=== PATIENT | female | born 1935 | race American Indian/Alaskan Native ===

== ENCOUNTER 2017-08-28 16:45 | Emergency (ER) | payer MEDICARE, OTHER ==
[~2017-08-28] VITALS: Ht 157.5 cm; Wt 53.5 kg
[~2017-08-28 16:45] MED LIST: ACYCLOVIR800 MG PO; AZITHROMYCIN250 MG PO; CALCIUM 600 +1 EAC3 PO; CEPHALEXIN500 MG PO; CLARITIN5 MG PO; COLACE100 MG PO; HYDROXYZINE HCL25 MG PO; LORATADINE10 MG PO; MAGNESIUM OXID400 MG PO; NORCO 5-325 TA1 EACH; NORCO 5-325 TA1 EACH PO; PROVENTIL HFA6.7 GM INH; TERBINAFINE15 GM TOP; ZINC OXIDE30 GM TOP
== END 2017-08-28 19:08 | disposition home or self-care (01) ==
LOC: ED 16:45
DX: M54.5 Low back pain (principal); G89.29 Other chronic pain; R62.7 Adult failure to thrive; Z87.891 Personal history of nicotine dependence
CPT/HCPCS: 71010; 74000; 80053; 81001; 85025; 99283

== ENCOUNTER 2017-12-20 19:22 | Emergency (ER) | payer MEDICARE, OTHER ==
[~2017-12-20] VITALS: Ht 160 cm; Wt 53.5 kg
--- OUTSIDE RECORDS SUMMARY | 2017-12-20 20:13 | XMS | Clinical Summary ---
Demographics + + + | Address | [address] | | | [place] [address] | + + + | Home Phone | | + + + | Preferred Language | Unknown | + + + | Marital Status | | + + + | Orthodoxy Affiliation | Unknown | + + + | Race | or | + + + | Ethnic Group | Not or | + + + Author + + + | Author | [facility] | + + + | Organization | [facility] | + + + | Address | Unknown | + + + | Phone | Unavailable | + + + Support +------+ +---------+ + | Name | Relationship | Address | Phone | +------+ +---------+ + ECON | Unknown | Unavailable | +------+ +---------+ + Care Team Providers + +------+ + | Care Manager Gas Name | Role | Phone | + +------+ + PP | Unavailable | + +------+ + Source Comments JIMMY is fully live on both [facility] and [facility] InPatient.[facility] Allergies Not on File Current Medications Not on file Active Problems Not on file Social History + +-------+ +--------+------+ | Tobacco Use | Types | Packs/Day | Years | Date | | | | | Used | | + +-------+ +--------+------+ | Never Assessed | | | | | + +-------+ +--------+------+ + + + | Sex Assigned at | Date Recorded | | | | + + + | Not on file | | + + + Plan of Treatment + + + + + | Health Maintenance | Due Date | Last Done | Comments | + + + + + | INFLUENZA VACCINE | | | | | (FLU SHOT) | 7 | | | + + + + + Results Not on filefrom Last 3 Months"
--- OUTSIDE RECORDS SUMMARY | 2017-12-20 20:13 | XMS | Clinical Summary ---
Demographics + + + | Address | [address] | | | [place] [address] | + + + | Home Phone | | + + + | Preferred Language | Unknown | + + + | Marital Status | | + + + | Voodoo Affiliation | Unknown | + + + [...] Team Providers + +------+ + | Care Senior Business Consultant Name | Role | Phone | + +------+ + PP | Unavailable | + +------+ + Source Comments JIMMY is fully live on both [facility] and [facility] Allergies Not on File Current Medications [...]
== END 2017-12-20 21:22 | disposition home or self-care (01) ==
LOC: ED 19:22
DX: R10.9 Unspecified abdominal pain (principal); Z87.891 Personal history of nicotine dependence
CPT/HCPCS: 74176; 80053; 81001; 85025; 96374; 96375; 99284; J1885; J2405

== ENCOUNTER 2018-04-29 13:38 | Inpatient (IN) | payer MEDICARE, OTHER ==
[~2018-04-29] VITALS: Ht 160 cm; Wt 57.6 kg
--- NOTE | 2018-04-29 18:28 | NUR ---
PT RECEIVED FROM ED. PT TRANSFERED TO BED. PT PAINFUL TO MOVE AND TOUCH BILATERAL LOWER LEGS. PT ON ROOM AIR, LUNG SOUNDS CLEAR WITH FINE CRACKLES TO LOWER LOBES, TACHYPNIC. PT BOWEL TONES ACTIVE, DENIES NAUSEA. PT CONFUSED, POOR HISTORIAN, DISORIENTED TO PLACE, DATE AND EVENT. PT WITH SCATTERED SORES TO BACK, BUTTOCK, ARMS AND LEGS. REDNESS AND WARMTH TO LEFT BUTTOCK, LEFT HIP, LEFT CALF, RIGHT KNEE. PT ON TELEMETYR #7, SR, HR IN 80'S. PT ASSISTED WITH ORDERING DINNER. BED ALARM IN PLACE.
--- NOTE | 2018-04-29 18:40 | NUR ---
PT RECEIVED THIS EVENING FROM ED. PT ON TELE #7, IRREGULAR. PT CONFUSED, DISORIENTED TO ALL BUT SELF, BED ALARM IN PLACE. PT ON REGULAR DIET, POOR DENTITION, SOFT FOODS ENCOURAGED. PT WITH REDNESS AND PAIN TO BLE AND LEFT BUTTOCK, R/O DVT SCHEDULED FOR THIS EVENING. NS AT 100 ML/HR, IV LEVAQUIN. PT HAS NOT VOIDED SINCE ARRIVING TO FLOOR.
--- NOTE | 2018-04-29 21:02 | NUR ---
PT ASSESSMENT COMPLETE. PT REMOVING TELE, STATES "I DON'T WANT THAT ON". TELE STICKERS AND LEADS REPLACED. HR 80'S TO 90'S. LUNG SOUNDS COARSE TO BILATERAL LOWER LOBES. PT DOES NOT FOLLOW INSTRUCTIONS TO COUGH. PT REPORTS BM YESTERDAY. DENIES TENDERNESS TO ABD PALPATION. PT'S L BUTTOCK IS REDENNED, TENDER TO TOUCH. BLE'S TENDER TO TOUCH. AREA OF REDNESS AND WARMTH TO R KNEE AND L CALF OUTLINED. 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 STATES "LEAVE ME ALONE, I WANT TO SLEEP". BED ALARM IN PLACE DUE TO ALTERED MENTAL STATUS. PT'S ROOM IN VIEW OF NURSES STATION WITH CURTAIN OPEN.
--- NOTE | 2018-04-29 21:47 | NUR ---
PT REMOVED HER TELE STICKERS AGAIN, HAVE BEEN IN PT ROOM 5 TIMES SINCE 1930 TO REPLACE THE TEL STICKERS. PT COMPLAINS SHE WANTS TO SLEEP EVERYTIME THIS NURSE REPLACES THE STICKERS. ENCOURAGED PT TO KEEP THEM ON.
--- NOTE | 2018-04-30 00:23 | NUR ---
PT ASSESSMENT COMPLETE. PT DENIES PAIN. PT REMAINS DISORIENTED. PT REMOVED DRESSING TO IV SITE. PT CONTINUES TO BE AGITATED, STATING "LEAVE ME ALONE". IV DRESSING REPLACED. REDNESS TO L BUTTOCK AND BILATERAL LOWER EXTREMITIES CONTINUES. TENDERNESS TO BUTTOCKS AND BLE'S CONTINUES. REDNESS TO BLE'S REMAINS WITHIN OUTLINED AREAS. PT DENIES NEEDS. BED ALARM REMAINS ACTIVATED. CALL LIGHT WITHIN REACH.
--- NOTE | 2018-04-30 01:30 | NUR ---
PT FOUND LYING IN BED WITH IV REMOVED. IV CATHETER WITH TIP INTACT. GAUZE AND COBAN APPLIED TO SITE.
--- NOTE | 2018-04-30 02:38 | NUR ---
NEW IV SITE PLACED. PT TOLERATED WELL. COBAN AND GAUZE DRESSING APPLIED OVER IV SITE. MAINTENANCE FLUIDS RESTARTED. PT DENIES OTHER NEEDS. CALL LIGHT WITHIN REACH. BED ALARM ACTIVATED. ROOM WITHIN VIEW OF NURSES STATION WITH CURTAIN OPEN.
--- NOTE | 2018-04-30 04:15 | NUR ---
MD CALLED, NOTIFIED RE: URINE OUTPUT. ORDER RECEIVED TO INSERT CATHETER.
--- NOTE | 2018-04-30 05:17 | NUR ---
CATHETER INSERTED. PT VERY AGITATED DURING PROCEDURE, ATTEMPTING TO HIT STAFF AND YELLING AT STAFF TO STOP. IMMEDIATE RETURN OF 450ML OF LIT COLORED URINE. CATH SECURE IN PLACE ON R LEG, CATHETER TUBING PLACED OUT OF PT'S REACH.
--- NOTE | 2018-04-30 07:07 | EKG ---
[facility] [address] [place] [address] Signed Normal sinus rhythm Left axis deviation Abnormal ECG When compared with ECG of 29-APR-2018 14:12, (Unconfirmed) Sinus rhythm has replaced Atrial fibrillation Vent. rate has decreased BY 99 BPM Criteria for Septal infarct are no longer present Confirmed by PARVIZ MUNROE MD ([id number] on 04/30/2018 7:07:13 AM Electronically Signed By: PARVIZ MUNROE MD 04/30/18 0707 PATIENT NAME: ODALYS NAVARRO ZEYNEP Electrocardiogram DATE OF : 35 PHYSICIAN: PARVIZ MUNROE MD REPORT #: [id number] REPORT IS CONFIDENTIAL AND NOT TO BE RELEASED WITHOUT AUTHORIZATION
--- NOTE | 2018-04-30 07:07 | EKG ---
[facility] [address] [facility] [place], [place] [address] Signed Atrial fibrillation with rapid ventricular response Left axis deviation Minimal voltage criteria for LVH, may be normal variant Septal infarct , age undetermined Abnormal ECG No previous ECGs available Confirmed by PARVIZ MUNROE MD ([id number]) on 04/30/2018 7:06:58 AM Electronically Signed By: PARVIZ MUNROE MD 04/30/18 0707 PATIENT NAME: ODALYS NAVARRO ZEYNEP Electrocardiogram DATE OF : 35 PHYSICIAN: PARVIZ MUNROE MD REPORT #: [id number] REPORT IS CONFIDENTIAL AND NOT TO BE RELEASED WITHOUT AUTHORIZATION
--- NOTE | 2018-04-30 08:09 | NUR ---
SET PT UP FOR BRK AND ORDERED PT BRK. PT KEEPS STATING SHE WANTS TO GO HOME. SHE WANTS HER CLOTHES SO SHE CAN GO HOME.
--- NOTE | 2018-04-30 08:15 | NUR ---
PT AWAKE IN BED, ORIENTED TO SELF ONLY. BREAKFAST AT BEDSIDE. PT REFUSING TO EAT, GAVE PT ENSURE TO SIP ON. REPORTING LEFT HIP PAIN 5/10, AND REDDENED AREAS VERY SENSITIVE AND PAINFUL TO TOUCH, SLIGHTLY WARM REDNESS WITHIN BORDERS OF MARKINGS. IV INFUSING WNL, TORRES DRAINING WELL, URINE DARK YELLOW. BED ALARM ON. CALL LIGHT WITHIN REACH.
--- NOTE | 2018-04-30 11:05 | NUR ---
PT RESTING IN BED WITH EYES CLOSED, RESP EVEN AND UNLABORED, BED ALARM ON. WHEN AWAKE PT PICKS AT BLANKETS, OCC PULLS ON TORRES, OTHERWISE APPROPRIATE.
--- NOTE | 2018-04-30 11:31 | NUR ---
SPOKE WITH DOYLE MORENO [facility] NURSE FOR [facility] [address]. SHE STATES THEY HAVE FOLLOWED PATIENT IN THE PAST BUT HAVE NOT RECENTLY BEEN TO HER HOME. PATIENT RARELY COMES TO CLINIC. THEY CAN FOLLOW PATIENT AT DISCHARGE IF NEEDED.
--- NOTE | 2018-04-30 11:45 | NUR ---
vitals and i and o done. gave pt a wipe down.
--- NOTE | 2018-04-30 12:05 | NUR ---
PT SITTING IN BED WITH LUNCH TRAY AT BEDSIDE, STATES SHE IS NOT HUNGRY AND WONT TAKE ANY BITES OF FOOD EVEN WITH ASSISTANCE. ENSURE GIVEN. PT DENIES NEEDS OR CONCERNS AT THIS TIME. CALL LIGHT WITHIN REACH, BED ALARM ON.
--- NOTE | 2018-04-30 13:43 | NUR ---
PT AWAKE TO THE SOUND OF MY VOICE. PT LAYING ON R SIDE, WITH ONLY A GOWN FOR COVERING. I ASKED IF IF SHE WAS COLD, SHE SAID NO, BUT THAT SHE WAS WAITING FOR SOMEONE TO BRING HER HER "BAG". SHE SHOOK MY HAND AND SMILED. PT SAID SHE WAS IN NO PAIN AT THE MOMENT. WILL FOLLOW NEEDED
--- NOTE | 2018-04-30 13:50 | NUR ---
PT ASSISTED TO RECLINER WITH EITAN Peck AND TONE [place]. PT 2PA WITH WALKER, HAD TROUBLE FOLLOWING COMMANDS. SITTING UP IN RECLINER WATCHING TV, CHAIR ALARM IN PLACE.
--- NOTE | 2018-04-30 16:15 | NUR ---
PT RESTING IN RECLINER WITH EYES CLOSED, RESP EVEN AND UNLABORED. CHAIR ALARM ON.
--- NOTE | 2018-04-30 16:26 | NUR ---
THIS FURNITURE UPHOLSTERER HEPLED pt TO THE CHAIR WITH PT. HELPED ORDER DINNER AND BRK. pt HAS CALL LIGHT IN REACH.
--- NOTE | 2018-04-30 18:20 | NUR ---
PT 2PA BACK TO BED. ATE SMALL AMOUNT OF DINNER INDEPENDENTLY. RESTING IN BED, DENIES NEEDS OR CONCERNS. REMAINS ORIENTED TO SELF ONLY. CALL LIGHT WITHIN REACH. BED ALARM ON.
--- NOTE | 2018-04-30 21:30 | NUR ---
PATIENT IS RESTING COMFORTABLY IN BED, BREATHING IS EVEN AND UNLABORED. DENIES NEEDS AT THIS TIME. ASSESSMENT DONE. CALL LIGHT WITHIN REACH, BED ALARM ON.
--- NOTE | 2018-04-30 22:12 | NUR ---
UPDATED DR. BRAUN REGARDING PATIENT'S LOW URINE OUTPUT. NEW ORDERS RECEIVED PER EMAR. PATIENT TO RECEIVE 1L LR BOLUS OVER 3 HOURS.
--- NOTE | 2018-04-30 22:57 | NUR ---
PATIENT RESTING IN BED, BREATHING IS EVEN AND UNLABORED. IV REMAINS PATENT, FIDGITING WITH BLANKETS. STATES "I NEED TO FIND A BATHROOM." EDUCATED PATIENT ABOUT TORRES CATHETER. CATHETER IS PATENT AND DRAINING. CALL LIGHT WITHIN REACH, BED ALARM ON.
--- NOTE | 2018-05-01 00:45 | NUR ---
PATIENT RESTING IN BED, BREATHING IS EVEN AND UNLABORED. CONTINUES TO FIDGIT WITH BLANKETS AND IV TUBING. IV REMAINS INTACT. PATIENT STATES "I NEED A KNIFE FOR THIS TUBING." EDUCATED PATIENT ABOUT NEED FOR IV. PATIENT DENIES NEEDS AT THIS TIME. CALL LIGHT WITHIN REACH, BED ALARM ON.
--- NOTE | 2018-05-01 06:15 | NUR ---
PATIENT TURNED AND ATTENDS CHANGED, PATIENT APPEARS TO BE TACHYPNEIC, O2 SATURATION 96% ON ROOM AIR. PATIENT DENIES FEELING SOB, DOES NOT APPEAR IN DISTRESS. RT CALLED FOR PATIENT EVALUATION, PATIENT PLACED ON 2L O2 VIA NC. ONCE PATIENT AT REST, RR NOW 25. PATIENT STATES SHE IS COMFORTABLE. CALL LIGHT WITHIN REACH, BED ALARM ON.
--- NOTE | 2018-05-01 07:20 | NUR ---
BEDSIDE HANDOFF REPORT RECIVED FROM CIGAR WRAPPER RN. PT RESTING IN BED. PT DENIES NEEDS AT THIS TIME NS +40 MEQ POTASSIUM INFUSING AT 75 ML/HR. BED ALARM IN PLACE, TORRES CATH DRAINING FREELY.
--- NOTE | 2018-05-01 07:30 | NUR ---
UPDATED DR. BRAUN REGARDING PATIENT CONDITION. SINGLE VIEW CHEST XRAY ORDERED.
--- NOTE | 2018-05-01 09:15 | NUR ---
PT RESTIGNI N BED. NURSE AIDE AT BEDSIDE PROVIDING CARE. PT ON ROOM AIR, LUNG SOUNDS COARSE WITH EXPIRATORY WHEEZE TO LEFT LOWER LOBE, TACHYPNIC. PT WITH POOR APPETITE, BOWEL TONES ACTIVE. PT WITH TORRES IN PLACE, DRAINING YELLOW CONCENTRATED URINE. IV FLUIDS INCREASED TO 100 ML/HR PER ORDER. PT UNCOOPERATIVE WITH CARES, PAINFUL TO TOUCH BILATERAL LOWER LEGS OR TO TURN.
--- NOTE | 2018-05-01 09:32 | NUR ---
ORAL CARE SKIN CARE DONE ON PATIENT. PATIENT REFUSED VANGIE CARE. WILL TRY AGAIN. CHAPSTICK APPLIED TO LIPS. ATTENDS CLEAN AND DRY. CLEAN GOWN ON. BED ALARM ON.
--- NOTE | 2018-05-01 09:40 | NUR ---
PLAN TO TRANSFER PT TO CCU, CCU NURSE ODALYS TO BEDSIDE FRO REPORT. COURTROOM CLERK TO BEDSIDE TO TRANSPORT PT FOR ABD CT SCAN. IV ROCEPHIN GIVEN, IV VANCO INFUSING. PT ON ROOM AIR. REPORT GIVEN.
[2018-05-01] MEDS ORDERED: VITAMIN C500 M1 PO (10:09)
[2018-05-01] MEDS ORDERED: LASIX20 MG PO (10:10)
[2018-05-01] MEDS ORDERED: FERROUS GLUCON324 M1 PO (10:10)
[2018-05-01] MEDS ORDERED: IBU400 MG PO (10:11)
[2018-05-01] MEDS ORDERED: POTASSIUM CHLO10 ME1 PO (10:13)
[2018-05-01] MEDS ORDERED: TRIAMCINOLONE A15 G1 TOP (10:15)
--- NOTE | 2018-05-01 10:16 | NUR ---
BPT ARRIVED TO ROOM 128 VIA BED FROM MED/SURG AFTER CT OF ABD/PELVIS. VITAL SIGNS TAKEN, PT ON MONITOR WITH HEART RATE 110, BP 120/87, ORAL TEMP 98.6. PT CONFUSED BUT COOPERATIVE AT THIS TIME. TORRES BAG CHANGED TO UROMETER TO CHECK HOURLY URINE OUTPUT. ASSESSMENT COMPLETED, SKIN WITH RED AREAS. RED AREA ON RIGHT KNEE MARKED. VANCOMYCIN RUNNING AT THIS TIME.
--- NOTE | 2018-05-01 10:16 | NUR ---
MED REC COMPLETE
--- NOTE | 2018-05-01 12:44 | NUR ---
URINE OUTPUT [address] BRAUN HERE AND NOTIFIED. LR 500 ML BOLUS STARTED.
--- NOTE | 2018-05-01 13:08 | NUR ---
ASSESSMENT AND VITAL SIGNS COMPLETED. DRAW SHEET AND ATTENDS CHANGED. RED AREA ON LEFT HIP/BUTTOCK OUTLINED WITH MARKER. PT RESTING WITH HOB ELEVATED ON RIGHT SIDE. HEART RATE REMAINS TACHY AT 113 BPM AND PT TACHYPNIC WITH RESP 33.
--- NOTE | 2018-05-01 14:51 | NUR ---
DR. BRAUN NOTIFIED OF SVT HR 162 BPM. ORDERS RECEIVED FOR MAG RIDER 2GM IV AND ALSO FOR 2D ECHO.
--- NOTE | 2018-05-01 15:03 | NUR ---
PT RESTING IN BED, SVT NOTED UP TO 180 BPM ON MONITOR. URINE OUTPUT 16 MLS THIS HOUR. MAG RIDER RUNNING.
--- NOTE | 2018-05-01 15:23 | NUR ---
ULTRA SOUND TECH HERE TO START 2D ECHO.
--- NOTE | 2018-05-01 16:06 | NUR ---
ASSESSMENT COMPLETED. PT RESTING ON LEFT SIDE. 2D ECHO COMPLETED. URINE OUTPUT 25 MLS THIS HOUR.
--- NOTE | 2018-05-01 16:28 | NUR ---
DR. BRAUN NOTIFIED OF YELLOW PILLS FOUND ON THE FLOOR OF PT'S ROOM. POSSIBLE POTASSIUM PILLS FROM THIS MORNING. LAB HERE FOR LAB DRAW PER DR. SIMS.
--- NOTE | 2018-05-01 17:59 | NUR ---
IVF CHANGED PER ORDER. 22 GAUGE IV INSERTED IN LEFT HAND. URINE OUTPUT 15 MLS FOR THIS HOUR.
--- NOTE | 2018-05-01 20:30 | NUR ---
UPDATED DR. BRAUN REGARDING PATIENT'S CURRENT CONDITION. DR. BRAUN STATES THAT HE WILL COME TO FLOOR AND ASSESS PATIENT.
--- NOTE | 2018-05-01 20:42 | NUR ---
DR. BRAUN TO PATIENT'S ROOM TO SPEAK WITH FAMILY AND ASSESS PATIENT.
--- NOTE | 2018-05-01 22:00 | NUR ---
UPDATED DR. BRAUN REGADING PATIENT'S OLIGUIA. NO NEW ORDERS AT THIS TIME.
--- NOTE | 2018-05-01 23:05 | NUR ---
UPDATED DR. BRAUN REGARDING PATIENT'S OLIGUIA. NO NEW ORDERS AT THIS TIME.
--- NOTE | 2018-05-01 23:22 | NUR ---
PATIENT RESTING COMFORTABLY IN BED, RR IS 25, HEART RATE 74. APPEARS TO BE RESTFUL, FLACC SCORE OF 0.
--- NOTE | 2018-05-02 00:04 | NUR ---
PATIENT RESTING COMFORTABLY IN BED. RR IS 28, HEART RATE 70. FLACC SCORE OF 0.
--- NOTE | 2018-05-02 01:10 | NUR ---
PATIENT RESTING COMFORTABLY IN BED, RR IS 27, HEART RATE 65. FLACC SCORE OF 0.
--- NOTE | 2018-05-02 02:09 | NUR ---
PT SLEEPING. RESP REG.
--- NOTE | 2018-05-02 04:26 | NUR ---
CONTINUES TO SLEEP WELL. BRIEF ASSESSMENT DONE AND PT DID STIR BUT NOT AWAKENED. GIVEN ONLY 2.5MG LOPRESSOR HR DECREASED TO 59 AND BP 103/44. RESP LESS LABORED SINCE HAS BEEN ASLEEP.
--- NOTE | 2018-05-02 08:16 | NUR ---
PT AWAKE AND ALERT, DRINKING CHOCOLATE ENSURE WHEN OFFERED. WILL TRY TO FEED PT A REG DIET. ASSESSMENT COMPLETED, NO C/O AT THIS TIME.
--- NOTE | 2018-05-02 09:09 | NUR ---
DR. BRAUN IN TO ASSESS PT. LAB ALSO HERE FOR A.M. LAB DRAW. A.M. MEDS GIVEN WITHOUT PROBLEMS.
--- NOTE | 2018-05-02 12:20 | NUR ---
PT SLEEPY AND REFUSED ORAL TEMP AND ORAL MEDS, ALSO REFUSED LUNCH. AXILLARY TEMP 99.4. LAB CALLED WITH CRITICAL VALUE - WBC 38.6. DR. BRAUN NOTIFIED. DR. BRAUN HERE AND UPDATE GIVEN, NEW ORDERS RECEIVED. ASSESSMENT COMPLETED, URINE OUTPUT REMAINS APPROX 20 MLS/HR. PT REMAINS SLEEPY AND RESTING WITH HOB SLIGHTLY ELEVATED. SATS 95% ON RA, HR 80, RESP 25, BP 110/59 (71).
--- NOTE | 2018-05-02 15:26 | NUR ---
PT AWAKE, SPONGE BATH GIVEN AND CATH CARE COMPLETED. LOTION APPLIED TO DRY SKIN. ALLEVYN DRESSING ON RIGHT BUTTOCK NOT IN PLACE, DRESSING CHANGED. P.T. HERE AND PT ASSISTED TO SITTING POSITION. PT WAS ABLE TO STAND AND SIT X5. LINEN CHANGED AND PT RETURNED TO BED WITH 2 PERSON ASSIST. PT RESTING WITH EYES CLOSED, HOB ELEVATED 20 DEGREES.
--- NOTE | 2018-05-02 17:07 | NUR ---
PT CRYING, DENIES PAIN BUT STATES "I'M AFRAID TO GO ANY WHERE". PT REASSURED SHE IS SAFE HERE. ASSESSMENT COMPLETED. PT HAS GOOD PRODUCTIVE COUGH PRODUCING THICK WHITE PHLEGM. PT WITH HOB ELEVATED 40 DEGREES.
--- NOTE | 2018-05-02 17:23 | NUR ---
DR. BRAUN NOTIFIED OF INCREASED COUGH AND PRODUCTION OF THICK PHLEGM. ORDERS RECEIVED. IVF DECREASED TO 60 MLS/HR.
--- NOTE | 2018-05-02 17:47 | NUR ---
PT MEDICATED WITH TESSALON MARTY AND ROBITUSSIN DM 5MLS FOR COUGH.
--- NOTE | 2018-05-02 22:29 | NUR ---
PT UP TO COMMODE AT THIS TIME, TWO ASSIST WITH MINIMAL EFFORT BY PT. PT ABLE TO STAND AND PIVOT. SMALL LOOSE BM. SAMPLE COLLECTED TO SEND TO LAB.
--- NOTE | 2018-05-03 02:11 | NUR ---
PT RESTING AT THIS TIME, REQUESTING TO GO HOME TODAY. PT REORIENTED TO TIME AND PT IN AGREEMENT TO CONTINUE RESTING.
--- NOTE | 2018-05-03 04:19 | NUR ---
PT REQUESTS AGAIN TO RETURN HOME, REORIENTED TO TIME AND REPOSITIONED. PT BECOMING MORE VERBAL AND RESPONSIVE WITH APPROPRIATE QUESTIONS. PT DOES NOT ANSWER ALL QUESTIONS AT THIS TIME.
--- NOTE | 2018-05-03 08:12 | NUR ---
ASSESSMENT DONE. WILL SAY VERY FEW WORDS. REFUSING BREAKFAST. KEEPING EYUES SHUT. DENIES PAIN. RESP RATE 30. IVF PATENT AT 60 ML/HR. TORRES CATH IS PATENT WITH CLEAR YELLOW URINE.
--- NOTE | 2018-05-03 11:10 | NUR ---
URINE OUT OVER LAST HOUR EQUAL 10 ML, DR. BRAUN AWARE, NO FUTHER ORDERS AT THIS TIME. FAMILY MEMBERS ARE IN ROOM.
--- NOTE | 2018-05-03 12:11 | NUR ---
REFUSING LUNCH AND REFUSING ASSESSMENT AND VITAL SIGNS. VERY RESISTANT TO ANY TREATMENT OR CARES.
--- NOTE | 2018-05-03 12:49 | NUR ---
PT HAS BEEN IN BED, JOHNNY BARBER ADDED, RATHER UNRESPONSIVE. SHE HAS A G.SON FROM [place] HERE TO VISIT. I ENCOURAGED HER TO VISIT WITH HIM-HE HAS TRAVELLED A LONG WAS TO BE WITH HER. I WISHED THEM WELL AND THANKED HIM FOR MAKING THE TRIP. I LEFT I NOTICED PT WAS ACTUALLY VISITING WITH HIM. GOD BLESS THEM
--- NOTE | 2018-05-03 12:50 | NUR ---
UP TO COMMODE TO HAVE SMALL BM. THEN TO CHAIR. MORE AWAKE AND COOPERATIVE A THIS TIME. CONTINUE TO REFUSE FLUIDS OF LUNCH. ENC TO DEEP BREATH.
--- NOTE | 2018-05-03 13:15 | NUR ---
REFUSING PO MEDICATION. (POTASSIUM AND KPHOS). DR. BRAUN AWARE. THESE DC'D. WILL HANG IV KPHOS.
--- NOTE | 2018-05-03 14:00 | NUR ---
REMAINS IN CHAIR. KPHOS HUNG PER ORDERS. REFUSING ANYTHING PO
--- NOTE | 2018-05-03 16:00 | NUR ---
BACK TO BED AFTER ASSESSMENT. FAMILY MEMBERS REMAIN IN ROOM
--- NOTE | 2018-05-03 18:15 | NUR ---
ATTEMPTING TO GET OOB. TRANSFERRED TO CHAIR. CONTINUE TO REFUSE DINNER. WILL NOT TAKE ENSURE OR PO FLUIDS. HAVE ATTEMPTED SEVERAL TIMES TO GET PATIENT TO DRINK /EAT SOMETHING.
--- NOTE | 2018-05-03 18:25 | NUR ---
ATTEMPTING TO GET OUT OF CHAIR. PATIENT STATES SHE WANTS TO GO HOME. TOLD PT SHE COULD GO BACK TO BED OR STAY IN CHAIR. IS VERY DIFFICULT TO REASON WITH PATIENT. ATTEMPTED TO REORIENT. WISHES TO REMAIN IN CHAIR. IS VERY FRUSTRATED AT TIMES.
--- NOTE | 2018-05-04 06:10 | NUR ---
PT UP TO CHAIR AT THIS TIME; PT STATES SHE FEELS MUCH BETTER, WILLING TO TAKE SMALL AMOUNT OF PO CLEAR ENSURE; PT MORE ORIENTED AT THIS TIME
--- NOTE | 2018-05-04 07:28 | NUR ---
BEDSIDE REPORT RECIEVED. IS SITTING IN CHAIR, RESTFUL.
--- NOTE | 2018-05-04 08:30 | NUR ---
REFUSING BREAKFAST. REMAINS IN CHAIR. DENIES PAIN. RIGHT KNEE AND LEFT LOWER LEG WELL LEFT BUTTOCKS REMAINS RED.
--- NOTE | 2018-05-04 09:00 | NUR ---
TO SHOWER VIA SHOWER CHAIR.
--- NOTE | 2018-05-04 09:20 | NUR ---
TOLERATED SHOWER WELL. BACK TO BED W/O INCIDENT. DRESSING TO LEFT LOWER BUTTOCKS CHANGED.
--- NOTE | 2018-05-04 09:50 | NUR ---
DR. BRAUN HERE TO SEE PATIENT, PATIENT WILL BE TRANSFERRED TO MEDICAL FLOOR TODAY.
--- NOTE | 2018-05-04 10:22 | NUR ---
IVF CHANGED TO D5 LR WITH 40 KCL AT 60 ML/HR. TOOK PO LOPRESSOR W/O PROBLEMS. CONTINUE TO REFUSE TO EAT. TELEMETRY PJ'Les.
--- NOTE | 2018-05-04 10:45 | NUR ---
TO MEDICAL FLOOR VIA BED. REPORT GIVEN.
--- NOTE | 2018-05-04 11:48 | NUR ---
PT ARRIVED AT 1050. IV SITE ON HER LEFT AC HAS INFILTRATED. PT HOWEVER AT THIS TIME REFUSES A NEW IV SITE. PT AT THIS TIME JUST WANTS TO BE LEFT ALONE.
--- NOTE | 2018-05-04 12:39 | NUR ---
PT MOVED TO M/S FROM CCU. I ASKED PT IF SHE WAS COLD, SHE SAID NO, SAME FOR ANY PAIN SHE MIGHT BE EXPERIENCING. SHE DID SAY SHE WANTED ME TO PRAY FOR HER, WHICH I DID. SHE THEN THANKED ME IN A SWEET LITTLE VOICE. WILL FOLLOW NEEDED
--- NOTE | 2018-05-04 14:37 | NUR ---
V/S ARE WDL SO FAR. PT ONLY HAS AGREED TO TAKE A COUPLE OF SIPS OF APPLE JUICE. PT REFUSES TO EAT ANYTHING BUT KEEPS STATING THAT SHE WANTS TO GO HOME. URINE OUTPUT IS ADEQUATE HOWEVER. PT WANTS TO REST FOR NOW.
--- NOTE | 2018-05-04 16:00 | NUR ---
PT AT THIS TIME IS SLEEPING. PT DID WALK EARLIER WITH PT, RN GAIT BELT AND WALKER.
--- NOTE | 2018-05-04 17:29 | NUR ---
PT IS REFUSING V/S AND 2ND ASSESSMENT AT THIS TIME. FAMILY IS AT BEDSIDE AT THIS TIME.
--- NOTE | 2018-05-04 17:44 | NUR ---
PT SINCE ARRIVAL ON FLOOR HAS REFUSED ALL FOOD AND DRINK. PT FOR THE MOST PART IS NOT COOPERATING WITH CARE NEEDED. MD BRAUN IS AWARE ABOUT REFUSAL OF V/S AND ASSESSMENT FOR 1800. URINE OUTPUT IS ADEQUATE. PT SEEMS ALERT AT TIMES BUT SLEEPY OR PERHAPS IGNORING STAFF AT OTHER TIMES. GRANDDAUGHTER STATED THAT PT IS LACTOSE INTOLERANT. NO NEW CONCERNS AT THIS TIME.
--- NOTE | 2018-05-04 19:56 | NUR ---
RECEIVED BEDSIDE REPORT FROM DAY SHIFT RN. PT IN BED. NOT ANSWERING QUESTIONS AT THIS TIME. TORRES IN PLACE. CALL LIGHT WITHIN REACH. RESPIRATIONS AR EEQUAL AND NONLABORED.
--- NOTE | 2018-05-04 22:33 | NUR ---
ASSESSMENT COMPLETED. PT IN BED. DISORIENTED TO TIME AND PLACE. PT SLOW TO RESPOND TO QUESTIONS. DICONNECTED IV FLUIDS FROM ARM, WOUND UP NAD PLACED ON BEDSIDE TABLE. KEEPS DISCONNECTING TORRES. CRACKELS IN LOWER LUNG MARTELL. HEART SOUNDS NORMAL. CELLULITIS IMPROVING ON RIGHT KNEE, LEFT LEG AND PERINEUM AREA. AREAS MARKED. BED ALARM IN PLACE. CALL LIGHT WITHIN REACH.
--- NOTE | 2018-05-05 00:20 | NUR ---
PT APPEARS TO BE SLEEPING. TORRES AND IV CONNECTED. RESPIRATIONS EQUAL AND NONLABOED. CALL LIGHT WITHIN REACH. BED ALARM IN PLACE. PT VISIBLE FROM NURSING STATION.
--- NOTE | 2018-05-05 03:21 | NUR ---
PT WOKE UP. DISORIENTED TO PLACE. REORIENTED PT. RESPIRATIONS EQUAL AND NONLABOED. CALL LIGHT WITHIN REACH. BED ALARM IN PLACE.
--- NOTE | 2018-05-05 04:18 | NUR ---
PT APPEARS TO BE SLEEPING, TORRES IN PLACE. FLUIDS INFUSING AT CORRECT RATE. BAG CHANGED. RESPIRATIONS EQUAL AND NONLABORED. CALL LIGHT WITHIN REACH.
--- NOTE | 2018-05-05 08:00 | NUR ---
RECEIVED REPORT AT 0700, FOUND PT IN BED SLEEPING. NO NEW CONCERNS AT THIS TIME.
--- NOTE | 2018-05-05 10:00 | NUR ---
V/S ARE WDL, ALL LOBES ARE CLEAR. JESSEE IN HER LEFT LEG IS +1 WHICH IS AN IMPROVMENT FROM YESTERDAY. PT STATED NO PAIN WHEN TOUCHING HER LEG. ABD SOUNDS ARE PRESENT. PT HAD A BM AND THE ALLYVEN IN HER LEFT VANGIE AREA HAD TO BE CHANGED. THE OPEN AREA IS WHITE YELLOWISH IN COLOR. PT OVERALL SEEMS MORE ALERT TODAY AND COOPERATIVE. HOWEVER, PT IS STILL NOT EATING.
--- NOTE | 2018-05-05 12:00 | NUR ---
PT IS SLEEPING IN BED AT THIS TIME.
--- NOTE | 2018-05-05 16:00 | NUR ---
PT HAS HAD BM'S X3 TODAY. BM IS LIQUID WITH MUCOUSE PRESENT. WILL CONTINUE TO MONITOR. PT HOWEVER HAS BEEN GETTING STRONGER THIS SHIFT HAS PROGRESSED. PT IS ALMOST ABLE TO STAND UP ON HER OWN AND TURN TO BSC. BED ALARM IS ON. PT VERBALLY NOW IS CALLING OUT TO STAFF WHEN SHE NEEDS TO USE THE BSC. OVERALL PT IS STILL REFUSING ANY PO INTAKE AND MOUTH SWABS WELL. ALL LOBES ARE CLEAR, DRESSING IN LEFT VANGIE AREA IS C/D/I. REDNESS ON LEFT LEG AND RIGHT LEG IS MUCH LESS. PT ALSO DOES NOT HAVE PAIN ANYMORE WHEN HER LEGS ARE TOUCHED. EDEMA IN LEFT ANKLE AND FOOT IS +1 AT THIS TIME WHICH IS MUCH BETTER THAN YESTERDAY. NO NEW CONCERNS NOTED AT THIS TIME.
--- NOTE | 2018-05-05 18:18 | NUR ---
SINCE START OF SHIFT PT HAS PROGRESSIVELY GOTTEN STRONGER. PT AT THIS TIME IS ALMOST ABLE TO STAND UP ON HER OWN AND PIVOT TO BSC. PT HAD BM X3 TODAY. REDNESS IS MUCH BETTER TODAY AND EDEMA IN LEFT ANKEL AND FOOT IS ALSO DECREASED TO A +1. PT IS ALSO MORE ACTIVE,RESPONDS AND INTERACTS MORE WITH STAFF. PT ALSO IS MORE COOPERATIVE OVERALL. HOWEVER, PT IS STILL NOT EATING AT ALL AND HARDLY DRINKING ANYTHING. V/S OVERALL ARE WDL. DRESSING ON LEFT VANGIE AREA IS C/D/I. NO NEW CONCERNS AT THIS TIME.
--- NOTE | 2018-05-05 19:27 | NUR ---
RECIEVED REPORT FROM DAY SHIFT NURSE. PT IN BED. FAMILY AT BEDSIDE. FAMILY MEMBER REPORTED THE PT STATED SHE WAS HAVING LEFT SIDED CHEST PAIN. PT IS UNABLE TO DESCRIBE CHARACTERISTICS OF THE PAIN. V/S TAKE. 133/62 BLOOD PRESSURE, 100% O2, 85 PULSE, 98.2 TEMP, RR16 TYLENOL AVAILIBLE FOR PAIN. FAMILY MEMBER ENCOURAGING PO INTAKE AT THIS TIME. PT STILL REFUSING TO EAT OR DRINK AT THIS TIME. PT IS VISIBLE FROM NURSING STATION. BED ALARM IN PLACE. D5LR W/ 40MEQ INFUSING AT 60ML/HR. NEW FLUIDS ORDERED AFTER BAG COMPLETE.
--- NOTE | 2018-05-05 22:00 | NUR ---
ASSESSMENT COMPLETED. PT DISORIENTED TO PLACE AND TIME. 2+ EDEMA IN LLE. 1+ IN RLE. HEART SOUNDS NORMAL. CRACKLES HERD IN BILAT LOWER LOBES. BOWEL TONES ACTIVE. MEDICATION GIVEN. FLUIDS AND FOOD ENCOURAGED. PT REFUSED ONLY DRINKING 100ML. BED ALARM IN PLACE. CALL LIGHT WITHIN REACH. NO OTHER NEEDS AT THIS TIME
--- NOTE | 2018-05-05 23:52 | NUR ---
iv fluids changed to d5lr w/ 20meq. pt in bed appears to be sleeping. respiraions are equal and nonlabored. call light within reach. bed alarm in place. pt reposistioning self well.
--- NOTE | 2018-05-06 02:00 | NUR ---
PT APPEARS TO BE SLEEPING. D5LE W/ 20MEQ INFUSING AT 60ML/HR. RESPIRATIONS ARE EQUAL AND NONLABORED. CALL LIGHT WITHIN REACH. BED ALARM IN PLACE. VISIBLE FROM NURSING STATION
--- NOTE | 2018-05-06 04:00 | NUR ---
PT APPEARS TO BE SLEEPING. RESPIRATIONS EQUAL AND NONLABORED. BED ALARM IN PLACE. CALL LIGHT WITHIN REACH, PT VISIBLE FROM NURSING STATION. JUAN ALBERTO INPLACE. IV SITE WNL.
--- NOTE | 2018-05-06 05:29 | NUR ---
PT SLEPT THROUGHTOUT THE NIGHT. STILL REFUSING TO EAT OR DRINK ANYTHING. FOELY IN PLACE. D5LR W/20MEQ AT 60ML/HR. 2PA. PLAN FOR 6 MORE DAYS OF ANTIBIOTIC THERAPY. OUTPUT QS. NO BM. VSS. PT/OT THERAPY.
--- NOTE | 2018-05-06 06:58 | NUR ---
2PA TO BSC. PT ABLE TO BEAR WEIGHT AND TRANSFER WELL. SMALL LIQUID BOWEL MOVEMENT. AM CARES DONE. BACK TO BED. CALL LIGHT WITHIN REACH. BED ALARM IN PLACE. VISIBLE FROM NURSING STATION.
--- NOTE | 2018-05-06 08:00 | NUR ---
RECEIVED REPORT AT 0700, FOUND PT IN BED SLEEPING. THERE WAS NO CHANGE IN STATUS FOR THIS PT OVERNIGHT PER REPORT.
--- NOTE | 2018-05-06 08:02 | NUR ---
PATIENT WAS IN BED, ASSISTED NIGHTSHIFT NURSE IN PULLING PATIENT UP IN BED TO GET IN A BETTER POSITION. SEX THERAPIST NURSE PERFORMED ALL AM CARE. PATIENT DID NOT WANT ANYTHING FOR BREAKFST, WE WILL TRY AN APPLE JUICE ENSURE TODRINK.
--- NOTE | 2018-05-06 08:48 | NUR ---
Patient will continue with vancomycin 1250mg IV q 24 hrs as vancomycin trough was therapeutic at 15.5
--- NOTE | 2018-05-06 09:54 | NUR ---
PATEINT WAS IN BED, SHE ASKED FOR ANOTHER WARM BLANKET, VITAL SIGNS WERE DONE
--- NOTE | 2018-05-06 10:00 | NUR ---
V/S ARE WDL, ALL LOBES ARE CLEAR, ABD SOUNDS ARE PRESENT. REDNESS ON LEFT LEG IS GONE, EDEMA ON LEFT ANKLE AND FOOT IS THE SAME YESTERDAY AT A +1. REDNESS ON RIGHT KNEE IS GONE. MD BRAUN PULLED DRESSING FROM GLUTEAL/PER AREA. WILL CLEAN WOUND AND APPLY ANOTHER ALLYVEN IN A BIT. BRIAN WAS TO BE D/C PT HOWEVER REFUSED. BOTH OF THESE THINGS WILL BE DONE ONCE PT IS MORE COOPERATIVE. PT WALKED 47 STEPS IN THE HALLWAY WITH PT. NO NEW CONCERNS AT THIS TIME. PT NEEDS TO EAT AND DRINK.
== END 2018-05-06 10:15 | disposition swing bed (61) | DRG 871 ==
LOC: ED 13:38 → MS 17:16 → CCU 05-01 09:45 → MS 05-04 10:50
PROVIDERS: ADMIT Internal Medicine
DX: A41.9 Sepsis, unspecified organism (principal); G93.41 Metabolic encephalopathy; L03.116 Cellulitis of left lower limb; L03.115 Cellulitis of right lower limb; L03.317 Cellulitis of buttock; N17.9 Acute kidney failure, unspecified; I47.1 Supraventricular tachycardia; E87.2 Acidosis; R65.20 Severe sepsis without septic shock; L89.322 Pressure ulcer of left buttock, stage 2; F03.90 Unspecified dementia, unspecified severity, without behavioral disturbance, psychotic disturbance, mood disturbance, and anxiety; I48.0 Paroxysmal atrial fibrillation; E80.6 Other disorders of bilirubin metabolism; D64.9 Anemia, unspecified; E87.6 Hypokalemia; M62.81 Muscle weakness (generalized); E83.39 Other disorders of phosphorus metabolism; E55.9 Vitamin D deficiency, unspecified; E86.0 Dehydration
CPT/HCPCS: 36415; 71045; 73502; 74176; 80048; 80053; 80069; 80076; 80202; 81001; 82306; 83540; 83605; 83735; 84100; 84466; 84484; 84550; 85025; 85651; 87040; 93005; 93010; 93306; 93971; 94640; 97110; 97116; 97163; G0480; J0692; J0696; J1650; J1956; J3370; J3475; J7030; J7050; J7070; J7120

== ENCOUNTER 2018-05-06 10:15 | Inpatient (IN) | payer MEDICARE, OTHER ==
[~2018-05-06] VITALS: Ht 160 cm; Wt 57.6 kg
[~2018-05-06 10:15] MED LIST changes: +FERROUS GLUCON324 M1 PO; +IBU400 MG PO; +LASIX20 MG PO; +POTASSIUM CHLO10 ME1 PO; +TRIAMCINOLONE A15 G1 TOP; +VITAMIN C500 M1 PO
--- NOTE | 2018-05-06 11:59 | NUR ---
ASSISTED PT TO BSC. PT HAD SO FAR BM'S X2. GLUTEAL/PER WOUND WAS CLEANED WITH SPRAY AND ALLYVEN WAS APPLIED. PT STILL REFUSES TO EAT AN DRINK. OVERALL NO NEW CONCERNS AT THIS TIME.
--- NOTE | 2018-05-06 14:00 | NUR ---
PT WAS AWAKE IN BED. I ASKED HER IF SHE WANTED TO SIT IN THE CHAIR WATCHING OUGT THE WINDOW. PT AGREED. PT AT THIS TIME IS SITTING UP IN CHAIR. BRIAN WAS D/C AT 1400 WELL. CHAIR ALARM IS ON. PT STILL REFUSES TO EAT. PT DID DRINK A SIP OF WATER.
--- NOTE | 2018-05-06 16:06 | NUR ---
PT AT THIS TIME IS BACK IN BED AND RESTING.
--- NOTE | 2018-05-06 17:07 | NUR ---
ASSISTED PT TO BSC. PT VOIDED 125ML. PT IS BACK IN BED SLEEPING.
--- NOTE | 2018-05-06 17:36 | NUR ---
ASSISTED PT TO CHAIR. PT WANTED TO LOOK OUT THE WINDOW.
--- NOTE | 2018-05-06 17:36 | NUR ---
V/S ARE WDL. REDNESS IN LEFT LEG IS NO LONGER PRESENT. ALLYVEN ON LEFT VANGIE AREA NEEDS TO BE CHANGED AGAIN ONCE PT AGREES TO IT. PT WALKED WITH PHYSICAL THERAPY 47 FEET TODAY, AND AT THIS TIME IS ABLE TO STAND UP ON HER OWN. EDEMA IN HER LEFT ANKLE AND FOOT IS ABOUT A +1 TO +2. PEDIS PULSES ARE +2. ALL LOBES ARE CLEAR. TORRES WAS D/C AT 1400. PT HAS VOIDED 125ML SINCE. PT SO FAR IS CONTINENT. PT STILL HOWEVER IS NOT DRINKING OR EATING, AND IS ONLY ORIENTED TO SELF OVERALL. BED ALARM AND CHAIR ALARM ARE A MUST SINCE PT DOES NOT USE THE CALL LIGHT ASKED BY STAFF.
--- NOTE | 2018-05-06 19:30 | NUR ---
RECIEVED BEDSIDE REPORT FROM MEENU TURNER. PT APPEARS TO BE ASLEEP IN BED. D5LR INFUSING AT 60ML/HR. NO FOELY PRESENT. IT IS REPORTED THAT THE PT IS CONTINENT OF URINE AND BOWEL. PT IS DISORIENTED TO PLACE AND TIME. CALL LIGHT WITHIN REACH. BED ALARM IN PLACE.
--- NOTE | 2018-05-06 22:07 | NUR ---
ALERTED BY BED ALARM. PT EXITING BED WITHOUT ASSISTANCE OR CALLING. OOB SBA W/ FWW TO BATHROOM. VOIDED 100ML. BACK TO BED. BED ALARM IN PLACE. VISIBLE FROM NURSING STATION. CALL LIGHT WITHIN REACH. ASSESSMENT COMPLETED. LUNGS FINE CRACKLES IN BASES. TRACE EDEMA RLE +1 LLE. HEART SOUNDS REGULAR. DISORIENTED TO TIME AND PLACE. CONTINENT OF URINE AND BOWEL. DRESSING INTACT ON GLUTEAL WOUND. VSS. REDNESS IMPROVING.
--- NOTE | 2018-05-06 22:10 | NUR ---
BED ALARM ALERTED STAFF TO PT EXITING BED. DISORIENTED TO PLACE. WALKED TO WINDOW WITH SBA TO LOOK FOR HER CAR. REORIENTED TO PLACE. BACK TO BED CALL LIGHT WITHIN REACH. BED ALARM IN PLACE. VISIBLE FROM NRUSING STATION.
--- NOTE | 2018-05-06 23:43 | NUR ---
PT OOB WITHOUT USING CALL LIGHT. TO BATHROOM VOIDED, BACK TO BED. PT PULLED IV IN RIGHT WRIST. REPLACED. FLUIDS INFUSING. BED ALARM IN PLACE. CALL LIGHT WITHIN REACH
--- NOTE | 2018-05-07 01:10 | NUR ---
BED ALARM SOUNDED. PT TRYING TO GET OUT OF BED FOR BATHROOM. PT PULLED NEW IV IN HAND. REPLACED. BACK TO BED. BED ALARM IN PLACE.
--- NOTE | 2018-05-07 02:29 | NUR ---
PT ATTEMPTED TO GET OUT OF BED WITHOUT ASSISTANCE, BED ALARM SOUNDED. HELPED PT TO RESTROOM AND BACK TO BED. PT DENIES FURTHER NEEDS. BED ALARM IS ON AND CALL LIGHT IS WITHIN REACH.
--- NOTE | 2018-05-07 04:00 | NUR ---
PT APPEARS TO BE SLEEPING. RESPIRATIONS ARE EQUAL AND NONLABORED. CALL LIGHT WITHIN REACH. PT NVISIBLE FROM NURSING STATION. BED ALARM IN PLACE.
--- NOTE | 2018-05-07 05:06 | NUR ---
OOB SBA W/ FWW TO BATHROOM. VOID NOT MEASURED. BACK TO BED. ALARM IN PLACE. VISIBLE FROM NURSING STATION,. WARM BLANKET PROVIDED. RE-EDUCATED DEVELOPING MACHINE TENDER LIGHT. FLUIDS INFUSING @ 60ML/HR. PT ABLE TO USE WALKER PROPERLY, ONLY NEEDING HELP STANDING.
--- NOTE | 2018-05-07 06:05 | NUR ---
SWING BED. PT UP MULTIPLE TIMES TO USE BATHROOM. DOES NON USE CALL LIGHT. BED AND CHAIR ALARM. PULLED 2 IV'S OUT. FLUIDS @ 60. WOUND CONSULT. SBA FWW. VANCO TROUGH @ 1030. STILL NOT EATING AND DRINKING. PHYSICAL THERAPY. PLAN FOR ANTIBIOTICS FOR 3 MORE DAYS.
--- NOTE | 2018-05-07 08:15 | NUR ---
PT PULLED BOTH IV'S. NEW 20G IV STARTED IN LEFT AC BY VICENTE TURNER.
--- NOTE | 2018-05-07 09:30 | NUR ---
PT LYING IN BED. ORIENTED TO SELF ONLY. BED ALARM ON. PT DENIES PAIN OR OTHER CONCERNS. NEW IV INFUSING WNL. PT TAKING SIPS OF CLEAR ENSURE, REFUSING TO EAT BREAKFAST.
--- NOTE | 2018-05-07 10:00 | NUR ---
PATIENT BACK TO BED FROM CHAIR WITH ONE PERSON ASSIST WITH FWW. BED ALARM ON. WARM BLANKET GIVEN. CALL BUTTON IN REACH. NO OTHER NEEDS AT THIS TIME.
--- NOTE | 2018-05-07 10:15 | NUR ---
PT UP OUT OF BED INDEPENDENTLY, BED ALARM SOUNDING. PT SBA WITH WALKER TO RESTROOM. VOIDED WITHOUT DIFFICULTY. UP TO CHAIR, CHAIR ALARM ON. PT ENCOURAGED TO TAKE BITES/ SIPS OF FOOD.
--- NOTE | 2018-05-07 12:00 | NUR ---
PT REFUSING TO EAT LUNCH OR TAKE FLUIDS. LYING IN BED, BED ALARM ON. DENIES PAIN OR OTHER CONCERNS.
--- NOTE | 2018-05-07 14:16 | NUR ---
BED ALARM SOUNDS. THIS RN TO ROOM. PT ATTEMPTING TO GET OUT OF BED. PT STATES SHE WOULD LIKE TO SIT IN THE CHAIR. PT ASSISTED WITH TRANFER TO CHAIR. CHAIR ALARM ON. CALL LIGHT WITHIN REACH.
--- NOTE | 2018-05-07 15:15 | NUR ---
PT UP OUT OF CHAIR INDEPENDENTLY, PT ASSISTED TO RESTROOM, SBA WITH WALKER. AMB BACK TO CHAIR, CHAIR ALARM ON.
--- NOTE | 2018-05-07 18:41 | NUR ---
PT SITTING UP IN RECLINER VISITING WITH FAMILY. CHAIR ALARM ON. PT DENIES NEEDS OR CONCERNS AT THIS TIME. REFUSED TO EAT DINNER. ENSURE AT BEDSIDE.
--- NOTE | 2018-05-07 19:05 | NUR ---
IN ROOM FOR REPORT, PT IS AWAKE IN CHAIR WITH CHAIR ALARM ON. PT DENIES NEEDS AT THIS TIME.
--- NOTE | 2018-05-07 20:00 | NUR ---
ENTERED ROOM TO ASSESS PT, SHE IS ORIENTED TO SELF. PT REMOVED IV PROTECTION IN PLACE TO KEEP HER FROM PULLING AT IT. FLUSHED IV AND REDRESSED REMINDING PT TO LEAVE IT ALONE SO WE DO NOT HAVE TO START ANOTHER IV PT DID NOT RESPOND BUT ROLLED OVER TO SLEEP. SHE IS RESTING AT THIS TIME WITH EYES CLOSED AND RESPIRATIONS ARE EVEN AND NONLABORED. CALL LIGHT IS WITHIN REACH WITH BED ALARM ON.
--- NOTE | 2018-05-07 20:10 | NUR ---
PT ATTEMPTED TO GET OUT OF BED WITHOUT CALLING. HELPED HER TO RESTROOM AND BACK TO BED. BED ALARM IS ON AND CALL LIGHT IS WITHIN REACH.
--- NOTE | 2018-05-07 20:35 | NUR ---
ROUNDED CHARGE. RN IN THE ROOM. PATIENT IS RESTING IN BED. NO COMMENTS, QUESTIONS, OR CONCERNS. NO NEEDS NOTED AT THIS TIME. CALL LIGHT IN REACH. BED ALARM ON.
--- NOTE | 2018-05-07 22:14 | NUR ---
PATIENT ASSISTED TO THE RESTROOM. PATIENT IS A SBA W/FWW. PATIENT WAS ABLE TO VOID. PATIENT IS NOW BACK IN BED RESTING. PATIENTS BED ALARM IS PLACED ON FOR SAFETY. CALL LIGHT IN REACH.
--- NOTE | 2018-05-08 00:15 | NUR ---
PT IS RESTING WITH EYES CLOSED, RESPIRATIONS ARE EVEN AND NONLABORED. CALL LIGHT IS WITHIN REACH AND BED ALARM IS ON.
--- NOTE | 2018-05-08 03:46 | NUR ---
PT'S IV WAS BEEPING, AND WINDOW DRESSING COVERING INSERTION SITE WAS WET AND BLOOD TINGED. IV FLUSES WELL AND GOOD BLOOD RETURN. REMOVED DRESSING AND PLACED NEW DRESSING.
--- NOTE | 2018-05-08 04:37 | NUR ---
PT IS RESTING WITH EYES CLOSED, RESPIRATIONS ARE EVEN AND NONLABORED.BED ALARM IS ON.
--- NOTE | 2018-05-08 08:27 | NUR ---
pt sitting up in recliner now eating breakfast. rocephin infusing into left arm iv. chair alarm in place. belongings within reach. refused lovenox injection.
--- NOTE | 2018-05-08 11:50 | NUR ---
ENCOUNTERED PT IN THE HALLWAY WITH Lisa. SHE WAS UP AND WALKING, AND QUICKLY TOLD ME THAT TODAY IS A GOOD DAY. PT SEEMED MUCH MORE ALERT TODAY. SHE SMILED SHE CONTINUED ON. WILL CONTINUE TO FOLLOW
--- NOTE | 2018-05-08 14:32 | NUR ---
PT CHAIR ALARM ON. PITTING MACHINE OPERATOR AND THIS RN TO BEDSIDE. PT ATTEMPTING TO GET OUT OF CHAIR. PT ASSISTED TO SIT DOWN. BLOOD NOTED OVER FLOOR AND PT HAS BLOOD ON GOWN. PIV NOTED TO BE SITTING ON PTS LAP AND PT'S IV SITE BLEEDING OVER PT. GAUZE AND PRESSURE APPLIED TO PIV SITE FOR 5 MINUTES. NEW GAUZE AND COBAN APPLIED. SURROUNDING AREA CLEANED. PT WORKING WITH PITTING MACHINE OPERATOR'S TO SHOWER AND CLEAN UP. CHARGE NURSE NOTIFIED OF DC'D PIV.
--- NOTE | 2018-05-08 15:43 | NUR ---
WOUND CONSULT RECEIVED FOR THIS PATIENT. PATIENT IS FOUND SITTING IN HER RECLINER AND IS ASSISTED INTO THE BED WITH 2 RN STANDBY. PT TRANSFERS HERSELF WELL. PATIENT IS SIDE LYING ON HER RIGHT SIDE AND A 3 X 3 ALLEVYN DRESSING IS NOTED WITH A SCANT AMOUNT OF DRAINAGE SEEN FROM THE OUTSIDE OF THE DRESSING. THE DRESSING IS CAREFULLY REMOVED AND PATIENT IS QUITE TENDER FOR REMOVAL OF THE DRESSING. NO OPEN WOUND IS NOTED TO THE PATIENT'S LEFT GLUT/VANGIE AREA. THE SKIN APPEARS ERYTHMETOUS AND INDURATION IS NOTED. THERE ARE AREAS OF WHITE SKIN TISSUE. I RECOMMEND NO DRESSING GIVEN THE PATIENT'S TENDERNESS AND RECOMMEND APPLICATION OF ZINC SPRAY/CREAM WITH EACH AVNGIE CARE. JOHNNY DE LEON IS PRESENT FOR THIS ASSESSMENT WELL DR. BRAUN. MY RECOMMENDATIONS ARE RELAYED. NEW ATTENDS IS PLACED AND PATIENT TRANSFERS HERSELF BACK TO THE RECLINER AND THE CALL LIGHT IS PLACED WITHIN REACH.
--- NOTE | 2018-05-08 16:16 | NUR ---
PT UP OUT OF CHAIR-- CAUSING ALARM TO GO OFF-- MULTIPLE TIMES. REDIRECTED AND BACK IN RECLINER NOW.
--- NOTE | 2018-05-08 17:46 | NUR ---
PATIENT HAD UNEVENTFUL DAY. UP IN RECLINER MOST OF DAY. ATE A FEW BITES OF EACH MEAL. CHAIR ALARM ON WHEN UP. FIRST IV INFILTRATED. SECOND IV PULLED. BLOOD EVERYWHERE. SHOWERED PATIENT. WOUND CARE NURSE CONSULTED. DO NOT COVER WOUND. APPLY ZINC SPRAY WITH EACH VANGIE CARE. SBA WITH FWW. NEED NEW IV TOMORROW BEFORE VANCO INFUSED. MAY LEAVE IV OUT FOR NOW PER DR BRAUN. PT/OT HAD PT UP IN HALLS. DISORIENTED.
--- NOTE | 2018-05-08 18:46 | NUR ---
pt requested to ambulate with fww. walked from her room (110) to windows above stairway to cafeteria and back to room with SBA and FWW. steady on feet. pt back in bed now with call light and belongings in reach. did not eat any dinner.
--- NOTE | 2018-05-08 19:21 | NUR ---
IN ROOM FOR REPORT, PT IS RESTING WITH EYES CLOSED, RESPIRATIONS ARE EVEN AND NONLABORED AND BED ALARM IS ON.
--- NOTE | 2018-05-08 22:00 | NUR ---
WOKE PT TO ADMINISTER MEDICATION, TAKE VS AND ASSESS. PT IS COOPERATIVE BUT NOT RESPONDING TO QUESTIONS ASKED. ENCOURAGED HER TO DRINK LIQUIDS. ALSO TOLD HER THAT HER DAUGHTER CALLED AND PASSED ALONG A MESSAGE TO HER. PT IS RESTING AGAIN WITH EYES CLOSED AND DENIES NEEDS.
--- NOTE | 2018-05-08 23:25 | NUR ---
PT IS RESTING WITH EYES CLOSED, RESPIRATIONS ARE EVEN AND NONLABORED. BED ALARM IS ON.
--- NOTE | 2018-05-09 01:07 | NUR ---
PT IS RESTING WITH EYES CLOSED, RESPIRATIONS ARE EVEN AND NONLABORED. BED ALARM IS ON.
--- NOTE | 2018-05-09 02:50 | NUR ---
PT IS RESTING WITH EYES CLOSED, RESPIRATIONS ARE EVEN AND NONLABORED. BED ALARM IS ON.
--- NOTE | 2018-05-09 04:09 | NUR ---
PT IS RESTING WITH EYES CLOSED, RESPIRATIONS ARE EVEN AND NONLABORED. CALL LIGHT IS WITHIN REACH AND BEDALARM IS ON.
--- NOTE | 2018-05-09 04:51 | NUR ---
PT SLEPT WELL MOST OF THE NIGHT. FREQUENCY OF VOIDS DECREASED A LOT SINCE LAST NIGHT WITHOUT IV FLUIDS INFUSING. ENCOURAGED PO INTAKE. PER DAYSHIFT REPORT IT WAS OK WITH DR BRAUN TO LEAVE IV OUT OVERNIGHT SINCE SHE CONTINUES TO PULL THEM OUT. A NEW ONE NEEDS TO BE PLACED BEFORE ABX DUE TODAY. PER WOUND CONSULT LEAVE DRESSING OFF WOUND AND USE ZINC SPRAY AFTER VANGIE CARE. USE BED ALARM AND CHAIR ALARM.
--- NOTE | 2018-05-09 06:47 | NUR ---
PT IS RESTING IN BED WITH EYES OPEN. SHE DENIES NEEDS AT THIS TIME.
--- NOTE | 2018-05-09 08:31 | NUR ---
PT SLEEPING UPON ENTERING ROOM. AWAKENED TO VOICE. STARTED NEW IV IN RAC. TAPED WELL TO AVOID REMOVAL BY PATIENT.
--- NOTE | 2018-05-09 10:29 | NUR ---
PATIENT SITTING UP IN CHAIR. HAIR BRUSHED. FACE WASHED. MEDICATION GIVEN TO PATIENT.
--- NOTE | 2018-05-09 10:34 | NUR ---
PT IN ROOM WORKING WITH PATIENT.
--- NOTE | 2018-05-09 10:35 | NUR ---
SBA FWW TO BATHROOM. PATIENT WORKING WITH PHYSICAL THERAPY NOW. AMBULATING IN HALLS SBA WITH FWW OUT TO STAIRS TO [place] AND BACK.
--- NOTE | 2018-05-09 11:41 | NUR ---
patient resting in chair. lunch set up. patient eating egg salad sandwich. tolerating. started iv antibiotics. patient needing reminders not to touch iv. patient stating no pain at this time.
--- NOTE | 2018-05-09 12:50 | NUR ---
patient ambulated a lap in myers. tolerated with a stby assist and walker. tolerating eating bites of lunch. encouraged more po.patient has fruit ensure at bedside as well as water and coffee.
--- NOTE | 2018-05-09 14:07 | NUR ---
PT WAS SITTING UP IN CHAIR, READING THE PAPER. SHE SAID SHE WAS FEELING PRETTY GOOD TODAY, AND WENT FOR A WALK THIS MORNING. PT SEEMED TO ENJOY IT SO MUCH SHE TOLD ME SHE WOULD LIKE TO GO AGAIN. PLEASANT VISIT, EXTENDED A BLESSING, WILL FOLLOW NEEDED
--- NOTE | 2018-05-09 14:38 | NUR ---
patient ambulated lap in myers with pocket and pulley machine operator. tolerated. assisted back to chair. tolerating chair well.
--- NOTE | 2018-05-09 15:57 | NUR ---
patient ambulated in myers with nurse and ot. toleated well.
--- NOTE | 2018-05-09 16:35 | NUR ---
pateint complaining of l lower leg pain. assessed leg. patients leg has edema present. no reddness or warmth noted. patients has her normal skin discolorations to leg. offered ice to upper leg. warm blanket given. tylenol given.
--- NOTE | 2018-05-09 17:27 | NUR ---
patient did well today. new iv started. patient made sl when not getting iv antibiotics. patient tolerating clears and has had an increase of water intake. still refusing most meals. taking in some lunch today. c/o lower l leg. tylenol given.
--- NOTE | 2018-05-09 17:27 | NUR ---
patient ambulated in all with stby assist. set up for dinner.
--- NOTE | 2018-05-09 19:46 | NUR ---
RECIEVED REPORT FROM BASSAM, JOHNNY @ 1915, PT WAS IN HER RECLINER WITH CHAIR ALARM, APPROX 1929 THIS NURSE FOUND PT SITTING ON HER BED READING A NEWSPAPER, ALARM UNATTACHED TO GOWN. ASSISTED PT TO THE BATHROOM, BACK TO BED WITH WARM BLANKET, SL FLUSHES WELL, CALL LIGHT EXPLAINED TO PATIENT, BED ALARM ON. SRX4
--- NOTE | 2018-05-09 21:47 | NUR ---
PT REFUSING TO TAKE METOPROLOL, WILL ATTEMPT AGAIN WHEN SHE GETS UP TO THE BATHROOM
--- NOTE | 2018-05-09 23:10 | NUR ---
BED ALARM SOUNDING, PT TRYING TO TURN OVER IN BED. OFFERED THE BATHROOM BUT SHE SAID SHE WAS OK.
--- NOTE | 2018-05-10 01:55 | NUR ---
RECEIVED REPORT AT 0100. PT AT THAT TIME WAS SLEEPING.
--- NOTE | 2018-05-10 04:00 | NUR ---
PT WAS AWAKE IN BED ASKING FOR A BLANKET. A WARM BLANKET WAS PROVIDED. PT HAD NO NEEDS OR CONCERNS. PT IS SLEEPING.
--- NOTE | 2018-05-10 04:40 | NUR ---
VITALS AND I&OS DONE AND CHARTED. BEDSIDE TABLE AND CALL LIGHT WITHIN REACH. HELPED PT TO THE BATHROOM AND BACK TO BED WITH FWW.
--- NOTE | 2018-05-10 05:55 | NUR ---
SINCE 0100 PT HAS BEEN SLEEPING FOR THE MOST PART. PT AT ONE TIME NEEDED A WARM BLANKET. PO INTAKE IS STILL VERY POOR. OVERALL PT SEEMS MORE PLEASANT AND COOPERATIVE THAN LAST WEEK. NO NEW CONCERNS NOTED THIS SHIFT.
--- NOTE | 2018-05-10 07:39 | NUR ---
ASKED HER IF SHE WOULD LIKE SOME BREAKFAST. AND SHE SAID JUST A COFFEE SO I BROUGHT HER ONE AND LATER ON WE WILL GET HER AN STRAWBERRY ENSURE. RIGHT NOW SHE IS SLEEPING.
--- NOTE | 2018-05-10 08:17 | NUR ---
PATIENT WASHED HER FACE. OTHER ENVIRONMENTAL PROTECTION ECONOMIST GOT HER A GLASS OF APPLE JUICE, WATER, AND A STRAWBERRY ENSURE. SHE IS SITTING UP IN HER CHAIR READING HER PAPER. WITH FEET UP. REFUSED SHOWER. WILL ASK LATER MAYBE SHE WILL CHANGE HER MIND.
--- NOTE | 2018-05-10 09:21 | NUR ---
PATIENT SITTING UP IN CHAIR. ORDERED BREAKFAST. PATIENT REFUSING TO EAT. ENSURE AT BEDSIDE. WATER AND COFFEE AT CHAIR SIDE. PATIENTS ASSESSMENT COMPLETE. PATIENT LUNGS CLEAR. MEDICATION GIVEN. PATIENT TOLERATED WELL. TAB ALARM IN PLACE.
--- NOTE | 2018-05-10 10:11 | NUR ---
OT IN ROOM WORKING WITH PATIENT. ASSISTING PATIENT IN GETTING INTO HER OWN CLOTHING. PATIENT PARTICIPATED WELL. PATIENT DID BECOME TEARFUL TALKING ABOUT HOME AND MISSING FAMILY.
--- NOTE | 2018-05-10 10:55 | NUR ---
d/c'd vanco with elevated creatine. updated dr. tsai on patient fluid intake
--- NOTE | 2018-05-10 12:10 | NUR ---
PATIENT SET UP FOR LUNCH. PATIENT GOT TUNA FISH SANDWICH. PATIENT STATING NOT HUNGERY AT THIS TIME.
--- NOTE | 2018-05-10 14:00 | NUR ---
PT UP IN ROOM WITH STANDBY ASSIST. PATIENT WANTS TO "GO HOME". PATIENT IS HARD OF HEARING. PATIENT STATES SHE WANTS TO CALL HER FAMILY. GRAIN GRADER IN TO HELP PATIENT MAKE CALLS AND THEN WALK IN THE HALLS. DR MUNROE STATES PATIENT IS READY FOR DISCHARGE WITH HOME HEALTH FOLLOW UP FOR PT/OT. STAFF IS CALLING PATIENTS FAMILY TO SEE IF THEY ARE AVAILABLE TO TAKE PATIENT HOME.
[2018-05-10] MEDS ORDERED: CEPHALEXIN500 MG PO (14:51)
[2018-05-10] MEDS ORDERED: METOPROLOL SUCC25 MG PO (14:52)
--- NOTE | 2018-05-10 15:04 | NUR ---
ROUNDED WITH DR. MUNROE IN ROOM. PLAN TO DISCHARGE HOME TODAY IF ABLE TO GET AHOLD OF FAMILY.
--- NOTE | 2018-05-10 16:28 | NUR ---
PATIENT IS SITTING UP IN HER CHAIR WITH CHAIR ALARM ON. MIGHT BE GOING HOME TODAY.
--- NOTE | 2018-05-10 16:59 | NUR ---
patient given discharge education. family in room. family expressed that they feel like the patient will need a walker at discharge. new order given from dr. tsai to discharge planning. awaiting pharmacy at this time to assit with getting medications for the night.
--- NOTE | 2018-05-10 17:23 | NUR ---
RX, CLINICALS SENT TO [facility] FOR WALKER. PATIENTS GALINA RICH TRANG [phone] HAS ONE FOR PATIENT TO [facility] AND WILL GAME MASTER ORDERED WALKER TOMORROW FROM [facility].
--- NOTE | 2018-05-11 11:30 | NUR ---
SPOKE WITH [facility] NURSE. UPDATED HER THAT PATIENT WAS DISCHARGE HOME WITH GALINA COSTELLO [phone] YESTERDAY EVENING. UPDATED HER THAT WALKER WAS ORDERED AND I LEFT A MESSAGE ON [employer] THIS MORNING THAT THEY CAN PICK THIS UP AT [facility] TODAY. THEIR COMM[facility]ITY [facility]ALTH NURSES WILL GO TO PATIENTS HOME AND CHECK ON HER.
== END 2018-05-10 17:08 | disposition home or self-care (01) | DRG 603 ==
LOC: MS 10:15
PROVIDERS: ADMIT Internal Medicine
DX: L03.317 Cellulitis of buttock (principal); L03.116 Cellulitis of left lower limb; L03.115 Cellulitis of right lower limb; I47.1 Supraventricular tachycardia; E46 Unspecified protein-calorie malnutrition; E55.9 Vitamin D deficiency, unspecified; N18.3 Chronic kidney disease, stage 3 (moderate); F03.90 Unspecified dementia, unspecified severity, without behavioral disturbance, psychotic disturbance, mood disturbance, and anxiety; I48.0 Paroxysmal atrial fibrillation; M62.81 Muscle weakness (generalized); L89.329 Pressure ulcer of left buttock, unspecified stage; Z68.22 Body mass index [BMI] 22.0-22.9, adult; Z88.8 Allergy status to other drugs, medicaments and biological substances; Z79.899 Other long term (current) drug therapy
CPT/HCPCS: 36415; 80048; 80202; 82565; 82607; 84439; 84443; 84520; 97110; 97116; 97162; 97530; 97535; J0696; J1650; J3370; J7050; J7120